=== PATIENT | male | born 1935 | race Caucasian/White ===

== ENCOUNTER → 2017-06-19 14:26 | Outpatient (CLI) | payer MEDICARE, MEDICAID, SELFPAY ==
--- NOTE | 2017-06-19 14:30 | CT_ITS ---
STUDY: CTA OF THE ABDOMINAL AORTA AND BILATERAL LOWER EXTREMITIES REASON FOR EXAM: Male, 81 years old. Atherosclerosis, unable to trace right posterior or right peroneal RADIATION DOSAGE (If Supplied By Facility): CTDIvol = ( 7.82 ) mGy, DLP = ( 1370.50 ) mGycm TECHNIQUE: Axial CT angiography multi-detector data acquisition was obtained from the dome of the diaphragm to the ankle following intravenous administration of 100 ml of Isovue 370 contrast. Axial 3.75 mm images and MIP images were reconstructed from the axial data set. Post-processing of the angiographic images was performed, with multiplanar reformation and 3D reconstruction. 0.625 mm axial images from the 2 foot. Left abdominal wall is clipped. Individualized dose optimization techniques were used for this CT. TECHNICAL QUALITY: Good COMPARISON: None. Descriptors of Narrowing: None (0%) Mild (< 50%) Moderate (50-70%) Severe (70-90%) Subtotal/Total Occlusion (90-100%) Non-Evaluable (technically non-diagnostic FINDINGS: Abdominal aorta: Atherosclerotic plaque formation and atheromatous wall thickening without stenosis, dissection or aneurysm.. Celiac and superior mesenteric arteries: There is mild proximal narrowing. Inferior mesenteric artery: No demonstrated narrowing. Right dual renal artery(arteries): No demonstrated narrowing. Left renal artery(arteries): No demonstrated narrowing. Right common iliac artery: No hemodynamic significant narrowing. Right external iliac artery: No hemodynamic significant narrowing. Right internal iliac artery: There is moderate diffuse narrowing. Left common iliac artery: No hemodynamic significant narrowing. Left external iliac artery: No hemodynamic significant narrowing. Left internal iliac artery: There is moderate diffuse narrowing. RIGHT LOWER EXTREMITY Right common femoral artery: No hemodynamic significant narrowing. Right profundus femoris: No demonstrated narrowing. Right superficial femoral: There is moderate diffuse narrowing. Focal high-grade stenosis/focal occlusion proximal/mid thigh level. Image 145 series 2. Dense calcified distal superficial femoral artery with limited contrast assessment. Multiple high-grade stenoses or occlusions are suspected. Right popliteal artery: There is severe diffuse narrowing. Right tibioperoneal trunk: There is moderate diffuse narrowing. Right anterior tibial artery: There is mild diffuse narrowing, with visualization of the vessel to the distal calf. Right posterior tibial artery: There is moderate diffuse narrowing, with visualization of the vessel to the proximal calf. Right peroneal artery: There is moderate diffuse narrowing, with visualization of the vessel to the proximal calf. LEFT LOWER EXTREMITY Left common femoral artery: No demonstrated narrowing. Left profundus femoris: No demonstrated narrowing. Left superficial femoral: There is moderate diffuse narrowing. Focal high-grade stenosis/focal occlusion proximal/mid thigh level. Image 145 series 2. Dense calcified distal superficial femoral artery with limited contrast assessment. Left popliteal artery: There is moderate diffuse narrowing. Left tibioperoneal trunk: No demonstrated narrowing. Left anterior tibial artery: There is mild diffuse narrowing, with visualization of the vessel to the distal calf. Left posterior tibial artery: There is moderate diffuse narrowing, with visualization of the vessel to the distal calf. Left peroneal artery: There is moderate diffuse narrowing, with visualization of the vessel to the distal calf. CT ABDOMEN AND PELVIS WITH CONTRAST FINDINGS: The visualized lung bases are unremarkable. There is coronary artery calcification. There is decreased attenuation of the liver consistent with steatosis. Normal gallbladder and extrahepatic biliary system. Normal spleen. Normal pancreas. Normal bilateral adrenal glands. There is bilateral renal cortical thinning. Left upper renal pole cyst 1.5 cm. Normal visualized stomach. Normal small intestine. Normal colon. The appendix is visualized and appears normal. Normal inferior vena cava. There is retroperitoneal lymphadenopathy with enlarged nodes greater than 10-15mm in the short axis. Precaval lymph node measures 1.7 x 1.8, left periaortic lymph node 2.1 x 1.9 cm. There is left inguinal lymphadenopathy with conglomeration of enlarged lymph nodes extending to the thickened skin with subcutaneous fat stranding. Largest individual lymph node measures 4.1 x 1.9 cm image 110 series 2. There are smaller enlarged lymph nodes in the right inguinal fossa. Proximal thigh lymph node 4.2 x 2.6 cm image 119 series 2. Enlarged left external iliac chain lymph node 4.2 x 2.8 cm image 93 series 2. Enlarged deep right pelvic lymph node 1.7 x 1.5 cm Normal urinary bladder. There are bilateral inguinal containing adipose tissue and rectus muscle diastases leading into a fat-containing umbilical hernia. There are diffuse degenerative changes of the visualized spine and peripheral skeleton. There is demineralization of osseous structures. Pockets of air with disruption of skin along the posterior left calcaneus. There is adjacent subcortical osteopenia. Osteomyelitis is not excluded. Presumed medial tibial vascular clips. CT/CTA Abd w/Runoff W/WO Contrast IMPRESSION: 1. Atherosclerosis of the abdominal aorta without hemodynamic significant stenosis, leak, dissection or aneurysm. 2. 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 3. Proximal narrowing celiac and superior mesenteric arteries. 4. Bilateral diffuse atherosclerosis of the superficial femoral arteries with high-grade stenoses and areas of occlusion, right greater than left. 5. Severe right, moderate left diffuse narrowing of the popliteal artery and tibioperoneal trunk. 6. 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 7. Retroperitoneal, pelvic and left greater than right inguinal lymphadenopathy. 8. Renal involution, left renal cyst. 9. Possible osteomyelitis involving the left calcaneus. 10. Other nonacute findings as above. Electronically Signed: Linette Christopher MD at 4:47 EST , Service support ,
== END ==
PROVIDERS: Family Provider Student in an Organized Health Care Education/Training Program; PCP Student in an Organized Health Care Education/Training Program; Visit Provider Surgery Vascular Surgery
DX: I70.235 Atherosclerosis of native arteries of right leg with ulceration of other part of foot (principal)
CPT/HCPCS: 75635; Q9967